=== PATIENT | female | born 1975 | race Caucasian/White ===

== ENCOUNTER 2017-04-10 08:00 | Outpatient (CLI) | payer OTHER ==
[2017-04-11 13:17] LABS: HEPATITIS B SURFACE ANTIGEN NON-REACTIVE (NON-REACTIVE); HIV AG/AB 4TH GEN NON-REACTIVE (NON-REACTIVE)
[2017-04-11 13:26] LABS: HEPATITIS C ANTIBODY REACTIVE (NON-REACTIVE)
[2017-04-14 12:11] LABS: HSV 2 IGG TYPE SPECIFIC AB <0.90 index
[2017-04-14 14:33] LABS: HCV RNA QNT <1.18 DETECTED Log IU/mL (NOT DETECTED); HCV RNA QUANT RT PCR <15 DETECTED IU/mL (NOT DETECTED)
== END 2017-04-10 08:01 | disposition home or self-care (01) ==
LOC: LAB.WCP 08:00
PROVIDERS: ATTEND Physician Assistant Medical
DX: A53.9 Syphilis, unspecified (principal)
CPT/HCPCS: 36415; 81599; 86317; 86592; 86631; 86632; 86695; 86696; 86704; 86803; 87340; 87389

== ENCOUNTER 2017-04-11 12:14 | Outpatient (CLI) | payer OTHER | END 2017-04-11 12:15 | disposition home or self-care (01) | LOC: LAB 12:14 | PROVIDERS: ATTEND Physician Assistant Medical | DX: A53.9 Syphilis, unspecified (principal) | CPT/HCPCS: 87491; 87591 ==